=== PATIENT | female | born 1990 | race African-American/Black ===

== ENCOUNTER 2019-09-17 10:30 | Day surgery (SDC) | payer OTHER ==
[2019-09-17] MEDS ORDERED: GLYCOPYRROLATE 1 MG/5 ML VIAL SUBQ ONE (10:31)
[2019-09-17] MEDS ORDERED: PROPOFOL 200 MG/20 ML VIAL IVP ONE (10:31)
[2019-09-17] MEDS ORDERED: DEXAMETHASONE 4 MG/ML VIAL IVP ONE (10:31)
[2019-09-17] MEDS ORDERED: fentaNYL 100 MCG/2 ML VIAL IVP ONE (10:31)
[2019-09-17] MEDS ORDERED: MIDAZOLAM 2 MG/2 ML VIAL IVP ONE (10:31)
[2019-09-17] MEDS ORDERED: NEOSTIGMINE 1 MG/1 ML 10 ML MDV IVP ONE (10:31)
[2019-09-17] MEDS ORDERED: ROCURONIUM 50 MG/5 ML VIAL IVP ONE (10:31)
[2019-09-17] MEDS ORDERED: LIDOCAINE-MPF 1% 30 ML VIAL ONE (10:58)
[2019-09-17] MEDS ORDERED: SILVER NITRATE APPLICATOR TOP ONE (10:58)
[2019-09-17] MEDS ORDERED: BUPIVACAINE 0.5%-EPI 1:200000 PF 30 ML VIAL ONE (10:58)
[2019-09-17] MEDS ORDERED: LEVONORGESTREL 20 MCG/24H IUD IY ONE (10:59)
[2019-09-17] MEDS ORDERED: LACTATED RINGERS 1,000 ML IV ONE ×2 (11:01→13:21)
--- NOTE | 2019-09-17 11:11 | ANESTHESIA ---
Pre-Anesthesia VS, & Labs - NPO >8 hours - Is Patient ?: Waiver signed <Mauro Guaman - Last Filed: 09/17/19 12:06> - Diagnosis Left ovarian dermoid cyst (Mauro Guaman) - Procedure Lap ovarian Left cystectomy, IUD removal/replacement (Mauro Guaman) Vital Signs: Temp Pulse Resp BP Pulse Ox 38.2 C H 54 L 16 134/88 H 100 09/17/19 10:46 09/17/19 10:46 09/17/19 10:46 09/17/19 10:46 09/17/19 10:46 Height 5 ft 7 in Weight (kg) 83.46 kg Home Medications and Allergies <SARA REDDY - Last Filed: 09/17/19 11:08> <Mauro Guaman - Last Filed: 09/17/19 12:06> Home Medications: Ambulatory Orders Levonorgestrel 14 Mcg/24Hr [Magaly] 1 each IY 08/28/19 Naproxen 500 mg PO 08/28/19 Sumatriptan Succinate [Imitrex] 50 mg PO PRN 08/28/19 Levonorgestrel 14 Mcg/24Hr [Magaly] 1 each IY 08/28/19 Naproxen 500 mg PO 08/28/19 Sumatriptan Succinate [Imitrex] 50 mg PO PRN 08/28/19 Allergies/Adverse Reactions: Allergies Allergy/AdvReac Type Severity Reaction Status Date / Time No Known Drug Allergies Allergy Verified 08/28/19 09:26 Anes History & Medical History - Anesthetic History Anesthesia Complications: reports: No previous complications Family history of Anesthesia Complications: Denies Family history of Malignant Hyperthermia: Denies - Medical History Cardiovascular: reports: None Pulmonary: reports: None (vapes) Gastrointestinal: reports: None Urinary: reports: None, Other Neuro: reports: None Musculoskeletal: reports: None Endocrine/Autoimmune: reports: None Blood Disorders: reports: None Skin: reports: None Smoking Status: Current every day smoker (vapes) Psychosocial: reports: No issues indicated <SARA REDDY - Last Filed: 09/17/19 11:08> Exam General: Alert, Oriented x3, Cooperative, No acute distress Respiratory: Lungs clear, Normal breath sounds, No respiratory distress, No accessory muscle use Cardiovascular: Regular rate, Normal S1, Normal S2, No murmurs Abdomen: Normal bowel sounds, Soft, No tenderness, No hepatospenomegaly, No masses Extremities: No clubbing, No cyanosis, No edema, Normal pulses, No tenderness/swelling Neurological: Normal gait, Normal speech, Strength at 5/5 X4 ext, Normal tone, Sensation intact, Cranial nerves 3-12 NL, Reflexes 2+ Mental/Cognitive Status: Alert/Oriented X3, Normal for patient Cognitive Status: Within normal limits <SARA REDDY B - Last Filed: 09/17/19 11:08> Dental: WNL Mouth Openin Fingerbreadth Neck Mobility: Normal Mallampati classification: II <Mauro Guaman P - Last Filed: 09/17/19 12:06> Plan Anesthesia Type: General Consent for Procedure(s) Verified and Reviewed: Yes ASA classification: 2-Mild systemic disease (vapes, reports drinking two to three times a week.) <SARA REDDY - Last Filed: 09/17/19 11:08> Anesthesia Type: General Code Status: Attempt Resuscitation Is this case an emergency?: No <Mauro Guaman - Last Filed: 09/17/19 12:06>
[2019-09-17] MEDS ORDERED: BUPIVACAINE 0.5%-EPI 1:200000 PF 30 ML VIAL SUBQ ONE (12:10)
[2019-09-17] MEDS ORDERED: HYDROcod/ACETAM 10 MG/325 MG TABLET PO PRN (13:40)
[2019-09-17] MEDS: HYDROmorphone 1 MG/ML CARPUJECT ONE ×2 (14:05→14:23)
[2019-09-17] MEDS ORDERED: HYDROcod/ACETAM 10 MG/325 MG TABLET ONE (15:05)
[2019-09-17 15:33] VITALS: BP 125/77
--- NOTE | 2019-09-17 15:42 | OPERATIVE REPORT ---
Operative Report - General Procedure Date: 09/17/19 Planned Procedure: Diagnostic laparoscopy, left ovarian cystectomy, removal and replacement of Mirena IUD Pre-Op Diagnosis: Left ovarian dermoid cyst Procedure Performed: Same as above Post Op Diagnosis: Same as above - Procedure Note Primary Surgeon: Moraima Secondary Surgeon: Ky Anesthesia Provider: Anesthesia Technique: General ET tube Pathology: Left ovarian dermoid cyst Indications: 1. Left ovarian dermoid cyst 2. IUD with missing string 3. Desire for IUD replacement Findings: Exam under anesthesia: The uterus was of normal size, shape, and consistency and anteverted.. The adnexa were benign. Operative findings: The uterus was of normal size, shape, and anteverted. The tubes and right ovary appeared normal. The left ovary was 5 cm in diameter and contained what appeared to be a dermoid cyst. The anterior and posterior cul-de-sacs, right and left ovarian fossae, and liver edge and gallbladder all appeared unremarkable. There was no obvious evidence of endometriosis. Complications: None - Other Other Information/Narrative: The patient was taken to the operating room, where general endotracheal anesthesia was administered without difficulty. She was then positioned in the low dorsal lithotomy position with her lower extremities in Yellow Fin stirrups. Vagina, perineum, and abdomen were then prepped and draped in a sterile fashion. Procedure Time-Out was then performed. An exam under anesthesia was performed. A sterile bivalve speculum was then inserted into the vagina. The old Mirena IUD was removed. The anterior lip of the cervix was grasped with a Hulka tenaculum and a [place] catheter was placed.. The speculum was then removed, and attention was turned to the laparoscopy. 0.5% Marcaine was injected infraumbilically, then a 7-mm horizontal skin incision made. A 0-degree, 5 mm laparoscope was inserted into a 5 mm trocar and passed through the anterior layers of the abdominal wall using Optiview technique. The abdomen was then insufflated with carbon dioxide. The abdomen was visualized, then 2 additional ports placed at the left and right lower quadrants, first instilling local anesthetic, then placing the ports under direct visualization with the laparoscope. The patient was placed into Trendelenberg and bowel swept out of the cul-de-sac. The pelvis was visualized with the findings as noted above. The J hook was used to make an incision over the anterior surface of the dermoid cyst and traction countertraction technique was used to expose the cyst which was then freed with the LigaSure cutting coagulating device. The left lower quadrant 5 mm trocar site was enlarged to allow the passage of an 11 mm trocar. A 10 mm Endo Catch bag was placed through that trocar and the dermoid cyst was removed and sent for pathologic examination. The abdomen was then copiously irrigated irrigated with normal saline. The ovarian bed was checked for hemostasis which was judged adequate.. At this point the laparoscopy was deemed complete, and all trocars were removed from the abdomen. The carbon dioxide gas was then allowed to e scape. The incisions were then closed with 4-0 Monocryl in a subcuticular fashion followed by Dermabond skin adhesive. The uterine manipulator was removed. A new Mirena IUD was placed without difficulty and the strings shortened to 3 cm. At this point the procedure was deemed complete. The patient was then replaced supine, awakened, extubated, and transferred to the PACU in stable condition. There were no complications. Sponge, lap, and needle count were correct x 3. There were no complications.
[2019-09-17] MEDS ORDERED: ONDANSETRON ODT 4 MG TABLET ONE (16:07)
== END 2019-09-17 10:31 | disposition home or self-care (01) ==
LOC: SDS 10:30
PROVIDERS: ATTEND Obstetrics & Gynecology
PROC: 0UB14ZZ Excision of Left Ovary, Percutaneous Endoscopic Approach (ICD-10-PCS; principal; 2019-09-17 12:15)
PROC: 0U2DXHZ Change Contraceptive Device in Uterus and Cervix, External Approach (ICD-10-PCS; 2019-09-17 12:15)
DX: D27.1 Benign neoplasm of left ovary (principal); N94.6 Dysmenorrhea, unspecified; E66.9 Obesity, unspecified; F17.290 Nicotine dependence, other tobacco product, uncomplicated; Z30.433 Encounter for removal and reinsertion of intrauterine contraceptive device; Z68.30 Body mass index [BMI] 30.0-30.9, adult